=== PATIENT | female | born 2000 | race African-American/Black ===

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

== ENCOUNTER 2024-01-19 17:21 | Emergency (ER) | payer OTHER ==
[~2024-01-19] VITALS: Ht 170.2 cm; Wt 60.0 kg
[2024-01-19 17:31] VITALS: TEMP 98.1
[2024-01-19] MEDS: 0.9% SODIUM CHLORIDE 1000 ML IRRIG SOLUTION BOTTLE IRRIG ONE (19:55)
[2024-01-19] MEDS: LIDOCAINE 1%/EPI 1:200,000/PF 30 ML VIAL SQ ONE (19:56)
[2024-01-19] MEDS: PERTUSS(ACELL),DIPH,TET/PF 0.5 ML SYRINGE [ADULT] IM. ONE (19:58)
[2024-01-19] MEDS: BACITRACIN 28 GM OINTMENT TP ONE (20:37)
[2024-01-19 20:53] VITALS: BP 122/73; PULSE 86; RESP 16
== END 2024-01-19 21:07 | disposition home or self-care (01) ==
LOC: EMS 17:35
DX: S51.012A Laceration without foreign body of left elbow, initial encounter (principal); S71.012A Laceration without foreign body, left hip, initial encounter; S71.112A Laceration without foreign body, left thigh, initial encounter; X99.0XXA Assault by sharp glass, initial encounter; Y93.89 Activity, other specified; Y92.89 Other specified places as the place of occurrence of the external cause; Y99.8 Other external cause status
CPT/HCPCS: 99283; 90715; 90471; 12004; J3490

== ENCOUNTER 2024-01-20 22:31 | Emergency (ER) | payer OTHER ==
[~2024-01-20] VITALS: Ht 170.2 cm; Wt 60.0 kg
[2024-01-20 22:34] VITALS: BP 99/68; PULSE 86; RESP 16; TEMP 97.9
[2024-01-20] MEDS ORDERED: LIDOCAINE 1% 10 ML VIAL SQ ONE (23:15)
[2024-01-20] MEDS: LIDOCAINE/PF 1% 5 ML VIAL SQ ONE (23:34)
[2024-01-21] MEDS ORDERED: CEPH-558 PO (00:07)
[2024-01-21] MEDS: CEPHALEXIN MONOHYDRATE 500 MG CAPSULE PO ONE (00:22)
[2024-01-21] MEDS: BACITRACIN 0.9 GM PACKET OINTMENT TP ONE (00:22)
== END 2024-01-21 00:37 | disposition home or self-care (01) ==
LOC: EMS 22:32
DX: S51.012A Laceration without foreign body of left elbow, initial encounter (principal); W25.XXXA Contact with sharp glass, initial encounter; Y93.89 Activity, other specified; Y92.89 Other specified places as the place of occurrence of the external cause; Y99.8 Other external cause status
CPT/HCPCS: 99283; 12002; J2001